=== PATIENT | male | born 2000 | race African-American/Black ===

== ENCOUNTER 2021-11-07 01:35 | Emergency (ER) | payer MEDICAID ==
[~2021-11-07] VITALS: Ht 170.2 cm; Wt 77.0 kg
[2021-11-07 07:00] VITALS: BP 101/64
[2021-11-07] MEDS ORDERED: IBUP600T27 PO (07:10)
[2021-11-07] MEDS ORDERED: CEPH-509 PO (07:10)
== END 2021-11-07 07:17 | disposition home or self-care (01) ==
LOC: ER 01:35
DX: L73.9 Follicular disorder, unspecified (principal); Z79.1 Long term (current) use of non-steroidal anti-inflammatories (NSAID); Z79.899 Other long term (current) drug therapy